=== PATIENT | male | born 1980 | race Caucasian/White ===

== ENCOUNTER 2016-12-24 07:03 | Observation (INO) | payer OTHER ==
--- NOTE | ~2016-12-24 | OP ---
Record Of Operation [facility] [address] [place]. [address] NAME: KAISER DIAZ : 78 STATUS : DIS Kristyn PAT#: [id number] AGE: 36 ADM/REG DATE : 12/24/16 MR#: [id number] REPORT SERV DATE: 12/26/16 DICTATED BY: RUBI GUAMAN II DATE: 12/26/16 REPORT STATUS : Draft TRANSCRIBED BY: MODAnnika DATE: 12/26/16 DATE OF PROCEDURE: 12/24/2016 PREOPERATIVE DIAGNOSIS: C5-6 herniated nucleus pulposus with left upper extremity C6 radiculopathy. POSTOPERATIVE DIAGNOSIS: C5-6 herniated nucleus pulposus with left upper extremity C6 radiculopathy. PROCEDURES: 1. C5-C6 total disk replacement. 2. Use of the microscope. SURGEON: Rubi Guaman M.D. FLUIDS REPLACED: 1 L lactated Ringer's. ESTIMATED BLOOD LOSS: 15 mL. DRAIN: One drain. COMPLICATIONS: None. ANTIBIOTIC: Preoperatively. PREOPERATIVE HISTORY: This is a very friendly 36-year-old gentleman, who reports significant neck pain, worse with extension and rotation, and also worse at night, trying to go to bed. He also reports significant radiating pain into the left periscapular region and into the dorsal aspect of the forearm with associated dysesthesias in the index finger. We discussed the pros and cons of continuing nonoperative care. He has a significant degeneration of the C5-6 disk space. The facets appeared to be fairly normal. He has mild degenerative changes at the other levels. We discussed the merits of surgery. We discussed fusion versus total disk replacement as well as the expected outcomes regarding neck pain and arm pain respectively. DESCRIPTION OF PROCEDURE: After informed consent was obtained, the patient was brought to the operating room at his request and general anesthesia achieved. He was placed in the supine position, and the neck and iliac crest prepped and draped in a sterile fashion. The right-sided longitudinal incision was performed followed by subperiosteal exposure. The manufacturing director retractors were placed underneath the longus colli muscles. The [place] pins were placed into C5 and C6, and gentle distraction was now performed. With the microscope in place, the diskectomy was initiated with the knife followed by use of the pituitary rongeurs, [place] rongeurs, and the curettes. The endplates were now denuded of their cartilage with the curettes and the high-speed bur. The subchondral bone was not violated. At this point, the posterolateral osteophytes were now removed, and the posterior Record Of Operation [facility] [address] [place]. [address] NAME: KAISER DIAZ : 78 STATUS : DIS Kristyn PAT#: [id number] AGE: 36 ADM/REG DATE : 12/24/16 MR#: [id number] REPORT SERV DATE: 12/26/16 DICTATED BY: RUBI GUAMAN II DATE: 12/26/16 REPORT STATUS : Draft TRANSCRIBED BY: MODL DATE: 12/26/16 longitudinal ligament removed. The foraminotomies were completed. At this point, we had now remove the HNP at C5-C6. With fluoroscopy now in place, we now trialed the appropriate size disc replacement. We used the LDR Mobi-C system. Once the appropriate size was chosen, we then assembled it on the back table. The proper positioning was confirmed on fluoroscopy. At this point, the [place] pins were removed and hemostasis achieved. There was still some very mild cancellous bone bleeding for which a deep drain was placed. A standard closure was performed. The patient was extubated and transferred to PACU in stable condition. DAYANARA/MAN Rubi Guaman II, M.D. / [id number] CC: Linda Patiño II, M.D.
--- NOTE | ~2016-12-24 | HP ---
History And Physical [facility] [id number] [place]. [address] NAME: KAISER DIAZ : 78 STATUS : DIS Kristyn PAT#: [id number] AGE: 36 ADM/REG DATE : 12/24/16 MR#: [id number] REPORT SERV DATE: 01/02/17 DICTATED BY: RUBI GUAMAN II DATE: 01/02/17 REPORT STATUS : Draft TRANSCRIBED BY: MAN DATE: 01/02/17 DATE OF ADMISSION: 12/24/2016 CHIEF COMPLAINT: Neck and arm pain. HISTORY OF PRESENT ILLNESS: A friendly gentleman presenting for a total disk replacement today. He reports neck and arm pain. He also reports numbness and tingling. He denies any current chest pain or shortness of breath. PAST MEDICAL HISTORY: History of ulcerative colitis and reflux. MEDICATIONS: Please see the 11/20/2016. REVIEW OF SYSTEMS: Noncontributory. PHYSICAL EXAMINATION: GENERAL: Reveals a gentleman in no acute distress. VITAL SIGNS: Blood pressure is 140/102, later checked 138/92. Pulse is 70, respirations 17. NEUROLOGIC: He is in no acute distress. He is awake, alert, and oriented. NECK: Supple. He does have a positive Spurling sign. He has somewhat decreased range of motion of the neck. EXTREMITIES: He also does have weakness in the left upper extremity (biceps). Has a C6 dysesthesia. DIAGNOSTIC DATA: MRI and imaging shows C5-6 degeneration. The MRI shows a disk herniation. 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 The plan is for total disk replacement. DAYANARA/MAN Rubi Guaman II, M.D. / [id number] CC: Linda Patiño II, M.D.
[~2016-12-24 07:03] MED LIST: ACUTANE PO; AMB10 PO; APRISO0.375 GM PO; CELEXA20 PO; ENTOCORT3 PO; FLONASE NAS; IMU PO; LEXAPRO20 PO; LOM PO; MELA3 PO; NEUR300 PO; VALTREX5 PO; VITAMIN D31000 UNIT PO; WELLSR150 PO; XIFAXAN550 MG PO; XYZAL5 MG PO; ZANTAC150 MG PO
[2016-12-25] MEDS ORDERED: V5 PO (09:53)
[2016-12-25] MEDS ORDERED: MSCONT15 PO (09:53)
[2016-12-25] MEDS ORDERED: PERCOCET 10/3251 TAB PO (09:54)
== END 2016-12-25 15:55 | disposition home or self-care (01) ==
LOC: SDC 07:03 → 3SO 14:52
PROVIDERS: Orthopaedic Surgery
PROC: 01N10ZZ Release Cervical Nerve, Open Approach (ICD-10-PCS; 2016-12-24)
PROC: 0RB30ZZ Excision of Cervical Vertebral Disc, Open Approach (ICD-10-PCS; principal; 2016-12-24 09:00)
DX: M50.122 Cervical disc disorder at C5-C6 level with radiculopathy (principal); K21.9 Gastro-esophageal reflux disease without esophagitis; G43.909 Migraine, unspecified, not intractable, without status migrainosus; F32.9 Major depressive disorder, single episode, unspecified; F41.0 Panic disorder [episodic paroxysmal anxiety]; Z79.899 Other long term (current) drug therapy; Z90.89 Acquired absence of other organs; Z98.890 Other specified postprocedural states
CPT/HCPCS: 76000; 87641; 88304; 88311; 96374; 96375; 96376; A9270-GY; G0378; J0360; J0690; J1170; J2250; J2405; J2710; J3010